=== PATIENT | female | born 1965 | race Caucasian/White ===

== ENCOUNTER 2017-08-16 09:28 | Emergency (ER) | payer BC ==
[~2017-08-16] VITALS: Ht 157.5 cm; Wt 64.7 kg
[2017-08-16 10:22] LABS: HEMATOCRIT 42.6 % (36.0-46.0); MCH 30.9 PG (29.0-34.0); MCHC 33.1 G/DL (30.0-36.0); MCV 93.2 FL (83-99); MEAN PLAT.VOLUME 9.3 uM^3 (9.5-12.4); PLATELET COUNT 234 K/uL (156-360); RBC DIS.WIDTH-CV 12.4 % (11.8-14.6); RBC DIS.WIDTH-SD 42.6 % (39-53); RED BLOOD COUNT 4.57 M/uL (3.80-5.20); WHITE BLOOD COUNT 5.1 K/uL (4.1-10.2)
[2017-08-16 10:31] LABS: CHLORIDE 106 mEq/L (99-109); POTASSIUM 4.1 mEq/L (3.7-5.4); SODIUM 140 mEq/L (136-147)
[2017-08-16 10:32] LABS: GLUCOSE 98 mg/dL (70-99)
[2017-08-16 10:34] LABS: ANION GAP 5 MEQ/L (2-14)
[2017-08-16 10:36] LABS: GFR ESTIMATE (CALCULATED) > 59 mL/min/
[2017-08-16 10:37] LABS: UREA NITROGEN (BUN) 14 mg/dL (9-23)
[2017-08-16 10:43] LABS: TROP-I INTERPRETATION NEGATIVE; TROPONIN-I < 0.01 ng/mL (0.0-0.30)
[2017-08-16 12:55] LABS: TROP-I INTERPRETATION NEGATIVE; TROPONIN-I < 0.01 ng/mL (0.0-0.30)
[2017-08-16 13:33] VITALS: BP 118/77
== END 2017-08-16 13:34 | disposition home or self-care (01) ==
LOC: EME 09:28
PROVIDERS: Emergency Medicine
DX: M79.602 Pain in left arm (principal); R20.2 Paresthesia of skin
CPT/HCPCS: 71020; 80048; 84484; 85027; 93005; 99281; 99284